=== PATIENT | male | born 1990 | race Caucasian/White ===

== ENCOUNTER 2020-02-25 18:30 | Emergency (ER) | payer MEDICAID, OTHER ==
[~2020-02-25] VITALS: Ht 175.3 cm; Wt 127.6 kg
[2020-02-25 19:31] VITALS: BP 180/82
--- NOTE | 2020-02-25 19:49 | REPVR ---
PROCEDURE INFORMATION: Exam: US Duplex Right Lower Extremity Veins, Limited Exam date and time: 02/25/2020 7:34 PM Age: 29 years old Clinical indication: Pain; Leg, lower; Right; Additional info: Right lower leg swelling TECHNIQUE: Imaging protocol: Real-time Duplex ultrasound of the Right Lower Extremity with 2-D clemens scale, color Doppler flow and spectral waveform analysis with image documentation. Limited exam was focused on the right lower extremity veins. COMPARISON: No relevant prior studies available. FINDINGS: Right deep veins: Unremarkable. The common femoral, femoral, proximal profunda femoral and popliteal veins are patent without thrombus. Normal Doppler waveforms. Normal compressibility and/or augmentation response. Right superficial veins: Unremarkable. Saphenofemoral junction is patent without thrombus. Soft tissues: Unremarkable. IMPRESSION: No DVT of the right lower extremity veins. Electronically signed by: [place]n [place] On 02/25/2020 19:48:41 PM
[2020-02-25] MEDS ORDERED: BACTRIM 160MG/800MG DS TAB PO ONE (20:45)
[2020-02-25] MEDS ORDERED: BACT800T5 PO (20:48)
--- NOTE | 2020-02-26 00:43 | REP ---
Clinical: Right knee pain Technique: AP, lateral, bilateral oblique and sunrise views right knee . Findings: The osseous structures and joint spaces are intact and normal for age. There is no evidence for acute fracture or dislocation. No overt arthritic changes are appreciated. No joint effusion is appreciated. Surrounding soft tissues are unremarkable. No subcutaneous emphysema or radiodense foreign body. Impression: Age-appropriate right knee radiographs. No acute fracture or dislocation. Electronically Signed by Ady Pastrana MD 02/26/2020 12:35 A
== END 2020-02-25 20:53 | disposition home or self-care (01) ==
LOC: M ED 18:30
DX: L03.115 Cellulitis of right lower limb (principal); Z88.0 Allergy status to penicillin; Z88.1 Allergy status to other antibiotic agents